=== PATIENT | female | born 1990 | race African-American/Black ===

== ENCOUNTER 2017-11-08 16:25 | Emergency (ER) | payer OTHER ==
[~2017-11-08] VITALS: Ht 154.9 cm; Wt 61.2 kg
[2017-11-08] MEDS ORDERED: PREDNISONE 20 M20 MG PO (19:07)
[2018-07-15] MEDS ORDERED: UNICOMPLEX M TA1 TA1 PO (18:26)
[2018-07-15] MEDS ORDERED: FLAGYL500 MG PO (21:41)
== END 2017-11-08 19:19 | disposition home or self-care (01) ==
LOC: ER 16:25
DX: R05 Cough (principal); Z20.2 Contact with and (suspected) exposure to infections with a predominantly sexual mode of transmission

== ENCOUNTER 2020-10-22 11:47 | Emergency (ER) | payer OTHER ==
[~2020-10-22] VITALS: Ht 154.9 cm; Wt 77.1 kg
[~2020-10-22 11:47] MED LIST: FLAGYL500 MG PO; PREDNISONE 20 M20 MG PO; UNICOMPLEX M TA1 TA1 PO
[2020-10-22] MEDS ORDERED: NAPROSYN500 MG PO (12:54)
[2020-10-22 13:46] VITALS: BP 111/53
== END 2020-10-22 13:47 | disposition home or self-care (01) ==
LOC: ER 11:47
DX: S82.302A Unspecified fracture of lower end of left tibia, initial encounter for closed fracture (principal); Z79.899 Other long term (current) drug therapy; X50.1XXA Overexertion from prolonged static or awkward postures, initial encounter; Y93.89 Activity, other specified; Y92.89 Other specified places as the place of occurrence of the external cause; Y99.8 Other external cause status

== ENCOUNTER 2020-11-02 15:09 | Emergency (ER) | payer OTHER ==
[~2020-11-02] VITALS: Ht 154.9 cm; Wt 76.2 kg
[~2020-11-02 15:09] MED LIST changes: +NAPROSYN500 MG PO
[2020-11-02 17:11] VITALS: BP 114/69
== END 2020-11-02 17:11 | disposition home or self-care (01) ==
LOC: ER 15:09
DX: S82.302D Unspecified fracture of lower end of left tibia, subsequent encounter for closed fracture with routine healing (principal); M79.89 Other specified soft tissue disorders; Z79.899 Other long term (current) drug therapy; X58.XXXD Exposure to other specified factors, subsequent encounter

== ENCOUNTER 2021-01-04 22:45 | Emergency (ER) | payer OTHER ==
[~2021-01-04] VITALS: Ht 154.9 cm; Wt 77.1 kg
[2021-01-04 23:07] LABS: URINE BILIRUBIN NEGATIVE (Negative); URINE BLOOD NEGATIVE (Negative); URINE CLARITY CLEAR; URINE COLOR YELLOW; URINE GLUCOSE-RANDOM* NEGATIVE (Negative); URINE KETONES NEGATIVE (Negative); URINE LEUKOCYTES-REFLEX NEGATIVE (Negative); URINE NITRITE-REFLEX NEGATIVE (Negative); URINE PROTEIN (DIPSTICK) NEGATIVE (Negative); URINE SPECIFIC GRAVITY 1.025 (1.005-1.035); URINE UROBILINOGEN 0.2 E.U./dl (0.2-1.0)
[2021-01-05 00:17] LABS: CALCIUM 8.7 mg/dL (8.5-10.1); CREATININE 0.9 mg/dL (0.6-1.0); POTASSIUM 3.6 mmol/L (3.5-5.1)
[2021-01-05 00:52] LABS: BASOPHILS 0.5 % (0.0-2.0); EOSINOPHILS 1.4 % (0.0-3.0); HEMATOCRIT 40.4 % (37.0-47.0); HEMOGLOBIN 13.4 gm/dL (12.0-15.0); LYMPHOCYTES 26.2 % (24.0-44.0); MCH 30.4 pg (26.0-34.0); MCHC 33.3 g/dL (28.0-37.0); MCV 91.2 fL (80.0-100.0); MONOCYTES 10.2 % (1.0-8.0); PLATELET COUNT 229 thou/uL (150-400); POLYS 61.7 % (36.0-66.0); RBC 4.43 mil/uL (4.20-5.00); RDW 12.6 % (10.5-14.5); WBC 9.8 thou/uL (4.0-11.0)
[2021-01-05 01:32] VITALS: BP 118/73
== END 2021-01-05 02:47 | disposition home or self-care (01) ==
LOC: ER 22:45
PROVIDERS: Emergency Medicine
DX: O20.0 Threatened abortion (principal); Z3A.00 Weeks of gestation of pregnancy not specified

== ENCOUNTER 2021-04-12 11:57 | Emergency (ER) | payer OTHER ==
[~2021-04-12] VITALS: Ht 154.9 cm; Wt 71.7 kg
[2021-04-12] MEDS ORDERED: PNV 29-1 TABLE1 EACH PO (12:12)
[2021-04-12 12:30] LABS: URINE BILIRUBIN NEGATIVE (Negative); URINE BLOOD NEGATIVE (Negative); URINE CLARITY SL CLOUDY; URINE COLOR YELLOW; URINE GLUCOSE-RANDOM* NEGATIVE (Negative); URINE KETONES NEGATIVE (Negative); URINE LEUKOCYTES-REFLEX NEGATIVE (Negative); URINE NITRITE-REFLEX NEGATIVE (Negative); URINE PROTEIN (DIPSTICK) NEGATIVE (Negative)
[2021-04-12 12:31] LABS: ABSOLUTE NEUTROPHILS 5.2 thou/uL (1.4-8.2); BASOPHILS 0.4 % (0.0-2.0); EOSINOPHILS 1.8 % (0.0-3.0); HEMATOCRIT 38.6 % (37.0-47.0); HEMOGLOBIN 13.2 gm/dL (12.0-15.0); LYMPHOCYTES 25.2 % (24.0-44.0); MCH 30.8 pg (26.0-34.0); MCHC 34.1 g/dL (28.0-37.0); MCV 90.2 fL (80.0-100.0); MONOCYTES 7.6 % (1.0-8.0); PLATELET COUNT 218 thou/uL (150-400); RBC 4.29 mil/uL (4.20-5.00)
[2021-04-12 12:41] LABS: CALCIUM 8.4 mg/dL (8.5-10.1); CREATININE 0.7 mg/dL (0.6-1.0); POTASSIUM 3.2 mmol/L (3.5-5.1)
[2021-04-12 12:47] LABS: ALBUMIN 2.9 g/dL (3.4-5.0); TOTAL BILIRUBIN 0.3 mg/dL (0.2-1.0)
[2021-04-12] MEDS ORDERED: POTASSIUM20 PO (14:00)
[2021-04-12 14:23] VITALS: BP 121/81
== END 2021-04-12 13:23 | disposition home or self-care (01) ==
LOC: ER 11:57
PROVIDERS: Physician Assistant
DX: O26.891 Other specified pregnancy related conditions, first trimester (principal); R10.32 Left lower quadrant pain; Z3A.13 13 weeks gestation of pregnancy; Z98.890 Other specified postprocedural states